=== PATIENT | female | born 1985 | race Caucasian/White ===

== ENCOUNTER 2020-03-04 15:20 | Emergency (ER) | payer BC, OTHER ==
[2020-03-04] MEDS ORDERED: MEPERIDINE HCL 25 MG/0.5 ML ONE (16:06)
[2020-03-04] MEDS ORDERED: ONDANSETRON 4 MG/2 ML VIAL ONE (16:07)
[2020-03-04] MEDS ORDERED: dexAMETHasone 10 MG/ML VIAL ONE (16:07)
[2020-03-04 16:18] LABS: Absolute Lymphocytes (CBC) 1.2 K/uL (0.7-4.9); Basophils % 0.4 % (0-1.3); Hematocrit 38.4 % (36.0-45.0); Lymphocytes % 8.2 % (15.3-44.8); MPV 10.4 fL (7.6-11.3); RBC Red Blood Cell Count 4.44 M/uL (3.86-4.86)
[2020-03-04 16:25] LABS: ALT/SGPT 22 U/L (12-78); AST/SGOT 13 U/L (15-37); Albumin 3.8 g/dL (3.4-5.0); Alkaline Phosphatase 84 U/L (45-117); BUN Blood Urea Nitrogen 11 mg/dL (7-18); Bicarbonate 23 mmol/L (21-32); Bilirubin Direct 0.2 mg/dL (0-0.2); Bilirubin Total 0.4 mg/dL (0.2-1.0); Glucose Level 106 mg/dL (74-106); Potassium 3.6 mmol/L (3.5-5.1); Protein, Total 7.6 g/dL (6.4-8.2); Sodium Level 139 mmol/L (136-145); Troponin (Emerg Dept Use Only) < 0.02 ng/mL (0.0-0.045)
[2020-03-04 16:28] LABS: Urine Blood NEGATIVE (NEG); Urine Glucose NEGATIVE (NEG); Urine Protein 1+ (NEG); Urine pH 5.5 (5.0-7.0)
--- NOTE | 2020-03-04 16:32 | RAD REPORT ---
EXAM DESCRIPTION: RAD - Chest Single View - 03/04/2020 4:18 pm CLINICAL HISTORY: CHEST PAIN TECHNIQUE: AP portable chest image was obtained 03/04/2020 4:18 pm . FINDINGS: Lungs are clear. Heart and vasculature are normal. No measurable pleural effusion and no p neumothorax. No acute bony abnormality seen. No acute aortic findings suspected. IMPRESSION: No acute cardiopulmonary process.
[2020-03-04 17:09] LABS: Platelet Estimate ADEQ; Urine White Blood Cell Casts OK
[2020-03-04 17:10] LABS: Blood Morphology Comment NOT SEEN (NOT SEEN)
--- NOTE | 2020-03-04 17:32 | RAD REPORT ---
EXAM DESCRIPTION: CT - Chest For Pe Angio - 03/04/2020 4:55 pm CLINICAL HISTORY: CHEST PAIN COMPARISON: Chest Single View dated 03/04/2020 TECHNIQUE: Dynamically enhanced 3 mm thick images of the chest were obtained during administration o f approximately 150mL Isovue 370 IV contrast. Coronal and oblique MIP reconstruction images were gene rated and reviewed. Exam utilizes a protocol to evaluate the pulmonary arterial tree. All CT scans are performed using dose optimization technique as appropriate and may include automated exposure control or mA/KV adjustment according to patient size. FINDINGS: No pulmonary emboli are identified. The aorta as imaged shows no acute or suspicious finding. No pericardial thickening or effusion. No infiltrate or mass in the lung parenchyma. Interstitial edema is not suspected. No pleural effusio n or pleural thickening. No mediastinal or hilar suspicious masses. No chest wall masses or abnormal axillary lymphadenopathy. IMPRESSION: No pulmonary emboli identified. No other significant or suspicious findings.
--- NOTE | 2020-03-04 17:42 | EDPHYS ---
Physician Documentation [facility] Name: Haydee Whiteside Age: 34 yrs Sex: Female : 1985 Arrival Date: 03/04/2020 Time: 15:23 Bed 15 Private MD: ED Physician Nito Mota HPI: 03/04 16:14 This 34 yrs old Female presents to ER via Ambulatory with complaints of Chest rn Pain, Numbness Of Arm. 16:15 The patient or guardian complains of pain, tingling. The complaints affect the right rn proximal arm to elbow. 16:16 Onset: The symptoms/episode began/occurred today. Modifying factors: The symptoms are rn alleviated by nothing. the symptoms are aggravated by movement. Severity of symptoms: At their worst the symptoms were moderate, in the emergency department the symptoms are unchanged. The patient has experienced similar episodes in the past. Reports right arm pain, shoots from right shoulder to right elbow, assoc with tingling and numbness, also reports "chest tightness", no sob/diaphoresis/cough/fever/abd pain. Has had similar symptoms in past but worse today. No injury. No fam hx of early cardiac problems. No travel. No hx of RUE procedure, no hx of dvt/PE.. 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 - Social history:: Smoking status: Patient denies any tobacco usage or history of. - Family history:: not pertinent. - Hospitalizations: : No recent hospitalization is reported. ROS: 16:16 Constitutional: Negative for fever, chills, and weight loss, Eyes: Negative for injury, rn pain, redness, and discharge, Neck: Negative for injury, pain, and swelling, Cardiovascular: Negative for palpitations, and edema, Respiratory: Negative for shortness of breath, cough, wheezing Abdomen/GI: Negative for abdominal pain, nausea, vomiting, diarrhea, and constipation, MS/Extremity: Negative for injury and deformity, Skin: Negative for injury, rash, and discoloration, Neuro: Negative for headache, weakness, and seizure. Exam: 16:16 Constitutional: This is a well developed, well nourished patient who is awake, alert, rn crying Head/Face: Normocephalic, atraumatic. Neck: Trachea midline. Supple, full range of motion without nuchal rigidity, or vertebral point tenderness. No Meningismus. Chest/axilla: Normal chest wall appearance and motion. Nontender with no deformity Cardiovascular: Tachycardic, regular. No pulse deficits. Respiratory: Lungs have equal breath sounds bilaterally, clear to auscultation. Mild hyperventilation. Abdomen/GI: soft, non-tender Skin: Warm, dry MS/ Extremity: Pulses equal, no cyanosis. Neurovascular intact. Full, normal range of motion. Equal circumference. Neuro: Awake and alert, GCS 15, oriented to person, place, time, and situation. Cranial nerves II-XII grossly intact. Motor strength 5/5 in all extremities. Sensory grossly intact. Cerebellar exam normal. Vital Signs: 15:27 BP 141 / 81; Pulse 101; Resp 19 S; Temp 98.4(TE); Pulse Ox 100% on R/A; Weight 75.3 kg ca1 (R); Height 5 ft. 2 in. (157.48 cm) (R); Pain 10/10; 16:07 BP 129 / 88; Pulse 91; Resp 16; Pulse Ox 100% on R/A; vc 17:00 BP 124 / 72; Pulse 93; Resp 15; Pulse Ox 100% on R/A; vc 15:27 Body Mass Index 30.36 (75.30 kg, 157.48 cm) ca1 MDM: 15:34 Patient medically screened. rn 17:40 Differential diagnosis: radiculopathy, musculoskeletal pain, pleurisy, referred pain. rn Data reviewed: vital signs, nurses notes, lab test result(s), EKG, radiologic studies, and as a result, I will discharge patient. Counseling: I had a detailed discussion with the patient and/or guardian regarding: the historical points, exam findings, and any diagnostic results supporting the discharge/admit diagnosis, lab results, radiology results, the need for outpatient follow up, to return to the emergency department if symptoms worsen or persist or if there are any questions or concerns that arise at home. Special discussion: I discussed with the patient/guardian in detail that at this point there is no indication for admission to the hospital. It is understood, however, that if the symptoms persist or worsen the patient needs to return immediately for re-evaluation. 03/04 15:45 Order name: Basic Metabolic Panel; Complete Time: 16:30 rn 03/04 15:45 Order name: CBC with Diff; Complete Time: 17:33 rn 03/04 15:45 Order name: LFT's; Complete Time: 16:30 rn 03/04 15:45 Order name: Troponin (emerg Dept Use Only); Complete Time: 16:30 rn 03/04 15:45 Order name: D-Dimer; Complete Time: 16:30 rn 03/04 16:21 Order name: Urine Dipstick--Ancillary (enter results); Complete Time: 16:30 03/04 15:45 Order name: XRAY Chest (1 view); Complete Time: 17:34 rn 03/04 15:45 Order name: EKG; Complete Time: 15:46 rn 03/04 16:21 Order name: Urine --Ancillary (enter results); Complete Time: 16:30 eb 03/04 16:22 Order name: CT Chest For PE Angio; Complete Time: 17:34 rn 03/04 17:10 Order name: CBC Smear Scan; Complete Time: 17:34 EDIA 03/04 15:45 Order name: Cardiac monitoring; Complete Time: 16:27 rn 03/04 15:45 Order name: EKG - Nurse/Tech; Complete Time: 16:24 rn 03/04 15:45 Order name: IV Saline Lock; Complete Time: 16:24 rn 03/04 15:45 Order name: Labs collected and sent; Complete Time: 16:24 rn 03/04 15:45 Order name: O2 Per Protocol; Complete Time: 16:26 rn 03/04 15:45 Order name: O2 Sat Monitoring; Complete Time: 16:26 rn 03/04 15:46 Order name: Urine Test (obtain specimen); Complete Time: 16:19 rn 03/04 15:46 Order name: Urine Dipstick-Ancillary (obtain specimen); Complete Time: 16:19 rn Administered Medications: 16:10 Drug: Decadron - Dexamethasone 10 mg Route: IVP; Site: right antecubital; vc 17:47 Follow up: Response: No adverse reaction; Marked relief of symptoms vc 16:12 Drug: Demerol 25 mg Route: IVP; Site: right antecubital; vc 17:47 Follow up: Response: No adverse reaction; Pain is decreased vc 16:14 Drug: Zofran (Ondansetron) 4 mg Route: IVP; Site: right antecubital; vc 17:47 Follow up: Response: No adverse reaction; Nausea is decreased vc Disposition: 03/04/20 17:41 Discharged to Home. Impression: Radiculopathy, cervical region. - Condition is Stable. - Discharge Instructions: Cervical Radiculopathy. - Prescriptions for Zofran ODT 4 mg Oral tablet,disintegrating - place 1 tablet by TRANSLINGUAL route every 8 hours As needed; 15 tablet. Cyclobenzaprine 10 mg Oral Tablet - take 1 tablet by ORAL route every 8 hours As needed; 15 tablet. Medrol (David) 4 mg Oral Tablets, Dose Pack - take 1 tablet by ORAL route as directed - follow package instructions; 1 packet. - Medication Reconciliation Form, Thank You Letter, Antibiotic Education, Prescription Opioid Use form. - Follow up: Private Physician; When: As needed; Reason: Recheck today's complaints, Re-evaluation by your physician. - Problem is new. - Symptoms have improved. Signatures: Dispatcher [employer] EDMS Nito Mota MD MD rn Acob, ASIYA Velarde RN ca1 Susan Park RN RN vc Corrections: (The following items were deleted from the chart) 17:58 17:41 03/04/2020 17:41 Discharged to Home. Impression: Radiculopathy, cervical region. vc Condition is Stable. Forms are Medication Reconciliation Form, Thank You Letter, Antibiotic Education, Prescription Opioid Use. Follow up: Private Physician; When: As needed; Reason: Recheck today's complaints, Re-evaluation by your physician. Problem is new. Symptoms have improved. rn
--- NOTE | 2020-03-04 17:42 | ER ---
Nurse's Notes [facility] Name: Haydee Whiteside Age: 34 yrs Sex: Female : 1985 Arrival Date: 03/04/2020 Time: 15:23 Bed 15 Private MD: Diagnosis: Radiculopathy, cervical region Presentation: 03/04 15:27 Chief complaint: Patient states: Chest pain more on R side radiating to the back and R ca1 arm to the elbow. Reports numbness of R forearm and hand. Reports back and shoulder pains for couple weeks, on and off. Chest pain started 2 hours ago. Denies cough, congestion and fever. Denies injury to back, arm and chest. Coronavirus screen: Patient denies fever greater than 100.4F, cough, shortness of breath, or difficulty breathing. Proceed with normal triage process. Ebola Screen: Patient negative for fever greater than or equal to 101.5 degrees Fahrenheit, and additional compatible Ebola Virus Disease symptoms Patient denies exposure to infectious person. Patient denies travel to an Ebola-affected area in the 21 days before illness onset. No symptoms or risks identified at this time. Initial Sepsis Screen: Does the patient meet any 2 criteria? No. Patient's initial sepsis screen is negative. Does the patient have a suspected source of infection? No. Patient's initial sepsis screen is negative. Risk Assessment: Do you want to hurt yourself or someone else? Patient reports no desire to harm self or others. Onset of symptoms was March 04, 2020. 15:27 Method Of Arrival: Ambulatory ca1 15:27 Acuity: MARI 3 ca1 Triage Assessment: 15:42 General: Appears in no apparent distress. uncomfortable, Behavior is cooperative, vc appropriate for age, anxious, crying. Pain: Complains of pain in chest Pain radiates to right arm. Cardiovascular: Patient's skin is warm and dry. Rhythm is regular. 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 - Social history:: Smoking status: Patient denies any tobacco usage or history of. - Family history:: not pertinent. - Hospitalizations: : No recent hospitalization is reported. Screenin:42 Abuse screen: Denies threats or abuse. Nutritional screening: No deficits noted. vc Tuberculosis screening: No symptoms or risk factors identified. Fall Risk None identified. Assessment: 15:44 Pain: Pain began suddenly. vc 15:45 General: Appears in no apparent distress. uncomfortable, Behavior is cooperative, vc appropriate for age, anxious, crying. Pain: Complains of pain in chest. Pain: Pain radiates to right arm. Neuro: Level of Consciousness is awake, alert, obeys commands. Cardiovascular: Patient's skin is warm and dry. Respiratory: Airway is patent Respiratory effort is even, unlabored, Respiratory pattern is regular, symmetrical, Sputum is 15:45 Derm: No deficits noted. Musculoskeletal: Circulation, motion, and sensation intact. vc Range of motion: intact in all extremities. 17:12 Reassessment: Patient appears in no apparent distress at this time. Patient and/or vc family updated on plan of care and expected duration. Pain level reassessed. Patient is alert, oriented x 3, equal unlabored respirations, skin warm/dry/pink. Patient states feeling better. Patient states symptoms have improved. 17:43 Reassessment: Patient appears in no apparent distress at this time. Patient and/or vc family updated on plan of care and expected duration. Pain level reassessed. Patient is alert, oriented x 3, equal unlabored respirations, skin warm/dry/pink. Patient denies pain at this time. Patient states feeling better. Patient states symptoms have improved. Vital Signs: 15:27 BP 141 / 81; Pulse 101; Resp 19 S; Temp 98.4(TE); Pulse Ox 100% on R/A; Weight 75.3 kg ca1 (R); Height 5 ft. 2 in. (157.48 cm) (R); Pain 10/10; 16:07 BP 129 / 88; Pulse 91; Resp 16; Pulse Ox 100% on R/A; vc 17:00 BP 124 / 72; Pulse 93; Resp 15; Pulse Ox 100% on R/A; vc 15:27 Body Mass Index 30.36 (75.30 kg, 157.48 cm) ca1 ED Course: 15:23 Patient arrived in ED. ag5 15:30 Triage completed. ca1 15:32 Arm band placed on right wrist. ca1 15:33 Susan Park, ASIYA is Primary Nurse. vc 15:34 Nito Mota MD is Attending Physician. rn 15:44 Patient has correct armband on for positive identification. Placed in gown. Bed in low vc position. Call light in reach. quality assurance monitor final on. Pulse ox on. NIBP on. 15:45 Patient maintains SpO2 saturation greater than 95% on room air. vc 16:19 XRAY Chest (1 view) In Process Unspecified. EDMS 16:55 CT Chest For PE Angio In Process Unspecified. EDMS 17:57 No provider procedures requiring assistance completed. IV discontinued, intact, vc bleeding controlled, No redness/swelling at site. Pressure dressing applied. Administered Medications: 16:10 Drug: Decadron - Dexamethasone 10 mg Route: IVP; Site: right antecubital; vc 17:47 Follow up: Response: No adverse reaction; Marked relief of symptoms vc 16:12 Drug: Demerol 25 mg Route: IVP; Site: right antecubital; vc 17:47 Follow up: Response: No adverse reaction; Pain is decreased vc 16:14 Drug: Zofran (Ondansetron) 4 mg Route: IVP; Site: right antecubital; vc 17:47 Follow up: Response: No adverse reaction; Nausea is decreased vc Outcome: 17:41 Discharge ordered by . rn 17:57 Discharged to home ambulatory. vc 17:57 Condition: good 17:57 Discharge instructions given to patient, Instructed on discharge instructions, follow up and referral plans. no driving heavy equipment, medication usage, Demonstrated understanding of instructions, follow-up care, medications, Prescriptions given X 3. 17:58 Patient left the ED. vc Signatures: Dispatcher [employer] EDMS Nito Mota MD MD rn Acob, Cheryl, RN RN ca1 Elham Falk ag5 Susan Park RN RN vc
[2020-03-04 18:08] VITALS: TEMP 98.4; O2SAT 100
[2020-03-04 18:10] VITALS: BP 124/72
--- NOTE | 2020-03-06 14:23 | EKG ---
Test Date: 2020-03-04 Test Time: 15:38:12 Scroll Shear Operator: MARILUZ MEASUREMENT RESULTS: Intervals: Rate: 86 NH: 130 QRSD: 80 QT: 356 QTc: 426 [place]: P: 46 NH: 130 QRS: 72 T: 0 INTERPRETIVE STATEMENTS: Normal sinus rhythm Nonspecific T wave abnormality Abnormal ECG No previous ECG available for comparison Electronically Signed On 03-06-20 14:22:50 CDT by Kiko Rader
== END 2020-03-04 17:58 | disposition home or self-care (01) ==
LOC: ER 15:20
DX: M54.12 Radiculopathy, cervical region (principal); Z88.0 Allergy status to penicillin; Z88.1 Allergy status to other antibiotic agents; Z88.2 Allergy status to sulfonamides; Z88.5 Allergy status to narcotic agent; Z88.8 Allergy status to other drugs, medicaments and biological substances
CPT/HCPCS: 93005; 85025; 80048; 36415; 81025; 85379; 80076; 81003; 84484; 71275; 71045; 96375; 96374; 99285; Q9967; J1100; J2175; J2405